=== PATIENT | female | born 1980 | race Caucasian/White ===

== ENCOUNTER 2019-06-18 13:52 | Outpatient (REF) | payer MEDICAID, SELFPAY ==
--- NOTE | 2019-06-18 13:30 | PAPFT_PTH ---
PATIENT: Estefany Mcclellan LOC: [facility] U#:[id number] AGE/SX: 38/F ROOM: RE06/18/[address]: MARCELO Sanderson : 1980 BED: DIS: 06/18/2019 SPEC #: [id number] RECD: 06/18/19 17:51 STATUS: TRENTPaul RELucio #: [id number] FOUZIA: 06/18/19 13:[address]: Bernie Hebert DEPT: [facility] Cytology RECD BY: Kimi Knutson ENTERED: 06/18/19 17:52 SP TYPE: PAPFT OTHR DR: Chintan Foss Tissues: 1 - CX/ENDOCX FOR PAP SMEARS Procedures: PAP THIN PREP/[facility] Screening HPV DNA PROBE Comments: [id number]
== END 2019-06-18 14:12 ==
LOC: LBN 13:52
PROVIDERS: PCP Physician Assistant; Visit Provider Nurse Practitioner Family
DX: Z12.4 Encounter for screening for malignant neoplasm of cervix (principal); Z11.51 Encounter for screening for human papillomavirus (HPV)
CPT/HCPCS: 88142; 87624

== ENCOUNTER 2020-06-26 09:29 | Outpatient (REF) | payer BC, SELFPAY ==
[2020-06-29 11:26] LABS: SARS-CoV-2 Specimen Source Nasopharynx
[2020-06-29 11:27] LABS: SARS-CoV-2 RNA Undetected (Undetected)
== END 2020-06-26 09:49 ==
LOC: NCHCN 09:29
PROVIDERS: PCP Internal Medicine; Visit Provider Internal Medicine
DX: R68.83 Chills (without fever) (principal); Z20.828 Contact with and (suspected) exposure to other viral communicable diseases
CPT/HCPCS: U0003

== ENCOUNTER 2021-08-07 13:18 | Outpatient (REF) | payer OTHER, SELFPAY ==
[2021-08-07 19:26] LABS: Abs Immature Grans 0.01 10^3/uL (0.0-0.06); Absolute Basophil Count 0.04 10^3/uL (0.0-0.2); Absolute Eosinophil Count 0.12 10^3/uL (0.0-0.7); Absolute Lymphocyte Count 2.43 10^3/uL (1.2-3.4); Absolute Monocyte Count 0.42 10^3/uL (0.1-0.8); Absolute Neutrophil Count 3.83 10^3/uL (1.2-6.7); Basophils % 0.6; Eosinophils % 1.8; HGB 12.8 g/dL (11.2-15.7); Immature Grans % 0.1; Lymphocytes % 35.5; MCH 30.6 pg (27.0-33.0); MCHC 33.7 % (32.0-36.0); MCV 90.9 fL (80-95); MPV 10.9 fL (8.0-11.0); Monocytes % 6.1; Neutrophils % 55.9; Nucleated RBC 0 %; Platelet Count 239 10^3/uL (130-400); RBC 4.18 10^6/uL (3.93-5.22); RDW 12.8 % (11.7-14.6); RDW-SD 42.6 fL; WBC 6.85 10^3/uL (4.4-10.8)
[2021-08-07 19:51] LABS: ALT 29 U/L (14-59); AST 13 U/L (15-37); Albumin 3.9 g/dL (3.4-5.0); Alkaline Phosphatase 32 U/L (46-116); Anion Gap 7.1 mmol/L (3-11); BUN 11 mg/dL (7-18); Bilirubin, Total 0.3 mg/dL (0.2-1.0); CO2 29.9 mmol/L (21.0-32.0); Calcium 9.3 mg/dL (8.5-10.1); Chloride 106 mmol/L (98-107); Glucose 85 mg/dL (74-106); Potassium 4.3 mmol/L (3.5-5.1); Sodium 143 mmol/L (136-145)
== END 2021-08-07 13:19 | disposition home or self-care (01) ==
LOC: NCHCN 13:18
PROVIDERS: PCP Internal Medicine; Visit Provider Physician Assistant
DX: R10.11 Right upper quadrant pain (principal)
CPT/HCPCS: 80053; 85025

== ENCOUNTER 2024-04-14 10:52 | Outpatient (REF) | payer OTHER, SELFPAY ==
[2024-04-14 20:08] LABS: Abs Immature Grans 0.02 10^3/uL (0.0-0.06); Absolute Basophil Count 0.06 10^3/uL (0.0-0.2); Absolute Eosinophil Count 0.15 10^3/uL (0.0-0.7); Absolute Lymphocyte Count 2.15 10^3/uL (1.2-3.4); Absolute Neutrophil Count 4.22 10^3/uL (1.2-6.7); Basophils % 0.9 %; Eosinophils % 2.1 %; HCT 38.3 % (36.0-46.0); HGB 12.8 g/dL (11.2-15.7); Immature Grans % 0.3 %; Lymphocytes % 30.7 %; MCH 30.8 pg (27.0-33.0); MCHC 33.4 % (32.0-36.0); MCV 92 fL (80-95); MPV 10.8 fL (8.0-11.0); Monocytes % 5.7 %; Neutrophils % 60.3 %; Platelet Count 283 10^3/uL (130-400); RBC 4.16 10^6/uL (3.93-5.22); RDW 12.4 % (11.7-14.6)
[2024-04-14 20:20] LABS: ALT 29 U/L (14-59); AST 20 U/L (15-37); Albumin 3.9 g/dL (3.4-5.0); Alkaline Phosphatase 37 U/L (46-116); Anion Gap 9.2 mmol/L (3-11); BUN 9 mg/dL (7-18); Bilirubin, Total 0.44 mg/dL (0.2-1.0); CO2 26.8 mmol/L (21.0-32.0); CREATININE 0.7 mg/dL (0.55-1.02); Calcium 9.4 mg/dL (8.5-10.1); Chloride 102 mmol/L (98-107); Glucose 95 mg/dL (74-106); Sodium 138 mmol/L (136-145); Total Protein 7.3 g/dL (6.4-8.2)
[2024-04-16 12:56] LABS: IgA 177 mg/dL (85-499); Interpretation (See Note); Tissue Transglutaminase IgA <4.0 CU (<20.0)
== END 2024-04-14 10:53 | disposition home or self-care (01) ==
LOC: NCHCN 10:52
PROVIDERS: PCP Internal Medicine; Visit Provider Physician Assistant
DX: R10.11 Right upper quadrant pain (principal)
CPT/HCPCS: 80053; 82784; 83516; 85025

== ENCOUNTER 2024-10-11 09:21 | Outpatient (REF) | payer OTHER, SELFPAY ==
--- NOTE | 2024-10-08 09:20 | PAPFT_PTH ---
PATIENT: Estefany Mcclellan LOC: [facility] U#:[id number] AGE/SX: 43/F ROOM: RE10/11/[address]: Kiley Landry : 1980 BED: DIS: 10/11/2024 SPEC #: [id number] RECD: 10/11/24 13:15 STATUS: MARIBEL RELucio #: [id number] FOUZIA: 10/08/24 09:[address]: Kiley Landry DEPT: [facility] Cytology RECD BY: Kimi Knutson ENTERED: 10/11/24 13:15 SP TYPE: PAPFT OTHR DR: John Steele Tissues: 1 - CX/ENDOCX FOR PAP SMEARS Procedures: PAP THIN PREP/[facility] Screening HPV DNA PROBE Comments: [id number] (HPV 16 & 18/45)
== END 2024-10-11 09:22 | disposition home or self-care (01) ==
LOC: NCHCN 09:21
PROVIDERS: PCP Internal Medicine; Visit Provider Physician Assistant
DX: Z12.4 Encounter for screening for malignant neoplasm of cervix (principal); Z01.419 Encounter for gynecological examination (general) (routine) without abnormal findings
CPT/HCPCS: 88142; 87624